=== PATIENT | male | born 1950 | race Two or more races ===

== ENCOUNTER 2025-01-05 21:25 | Inpatient (IN) | payer MEDICARE, OTHER ==
[~2025-01-05] VITALS: Ht 172.7 cm; Wt 79.4 kg
[2025-01-05 22:52] LABS: BASOPHILS # (AUTO) 0.1 K/uL (0.0-0.2); BASOPHILS % (AUTO) 1.4 % (0.0-2.0); EOSINOPHILS # (AUTO) 0.1 K/uL (0.0-0.7); EOSINOPHILS % (AUTO) 1.9 % (0.0-6.0); HEMATOCRIT 38 % (39-51); HEMOGLOBIN 12.8 g/dL (13.5-17.5); LYMPHOCYTES # (AUTO) 2.3 K/uL (0.8-4.8); LYMPHOCYTES % (AUTO) 29.7 % (20.0-44.0); MEAN CORPUSCULAR HEMOGLOBIN 32 PG (26.0-33.0); MEAN CORPUSCULAR HGB CONC 34 g/dl (31.0-36.0); MEAN CORPUSCULAR VOLUME 94 fL (80-96); MONOCYTES # (AUTO) 0.6 K/uL (0.1-1.30); MONOCYTES % (AUTO) 8.4 % (2.0-12.0); NEUTROPHILS # (AUTO) 4.5 K/uL (1.8-8.9); NEUTROPHILS % (AUTO) 58.6 % (43.0-81.0); PLATELET COUNT (AUTO) 312 K/uL (150-450); RED BLOOD CELL COUNT(AUTO) 3.99 MIL/uL (4.5-6.0); RED CELL DISTRIBUTION WIDTH 13.7 % (11.5-15.0); WHITE BLOOD COUNT (AUTO) 7.6 K/uL (4.3-11.0)
[2025-01-05 23:04] LABS: SERUM AMMONIA 14 umol/L (11-32)
[2025-01-05 23:05] LABS: CALCIUM, SERUM 9.2 mg/dL (8.5-10.1); CARBON DIOXIDE 23 mmol/L (21-32); CHLORIDE 103 mmol/L (98-107); CREATININE 0.9 mg/dL (0.6-1.3); GLUCOSE 103 mg/dL (74-106); POTASSIUM 3.9 mmol/L (3.5-5.1); SODIUM SERUM 137 mmol/L (136-145); UREA NITROGEN, BLOOD 14 mg/dL (7-18)
[2025-01-05 23:16] LABS: ALANINE AMINOTRANSFERASE < 6 U/L (12-78); ALBUMIN 3.7 g/dL (3.4-5.0); ALKALINE PHOSPHATASE 67 U/L (46-116); ASPARTATE AMINOTRANSFERASE 24 U/L (15-37); BILIRUBIN,TOTAL 0.4 mg/dL (0.2-1.0); SALICYLATE 3.1 mg/dL (2.8-20.0)
[2025-01-05 23:17] LABS: ACETAMINOPHEN <10 ug/ml (10-30)
[2025-01-06 00:37] LABS: APPEARANCE,URINE CLEAR (CLEAR); BILIRUBIN,URINE NEGATIVE (NEGATIVE); BLOOD, URINE NEGATIVE Ery/uL (NEGATIVE); COLOR,URINE YELLOW (YELLOW); KETONES,URINE NEGATIVE (NEGATIVE); LEUKOCYTE ESTERASE ,URINE NEGATIVE (NEGATIVE); NITRITE, URINE NEGATIVE (NEGATIVE); PH,URINE 7.5 (5.0-8.0); PROTEIN,URINE NEGATIVE (NEGATIVE); UGLUCOSE NEGATIVE (NEGATIVE); UROBILINOGEN,URINE 0.2 EU/dL (0.2)
[2025-01-06 00:45] LABS: AMPHETAMINE, URINE NEGATIVE (NEGATIVE); BARBITURATE, URINE NEGATIVE (NEGATIVE); BENZODIAZEPINE, URINE NEGATIVE (NEGATIVE); CANNABINOID, URINE NEGATIVE (NEGATIVE); COCCAINE, URINE NEGATIVE (NEGATIVE); OPIATE, URINE NEGATIVE (NEGATIVE); PHENCYCLIDINE SCREEN,URINE NEGATIVE (NEGATIVE)
[2025-01-06] MEDS ORDERED: HALO100A2 IM (04:59)
[2025-01-06] MEDS ORDERED: BISA10SU61 RC (04:59)
[2025-01-06] MEDS ORDERED: CARB1TAB24 PO (04:59)
[2025-01-06] MEDS ORDERED: DIPH25CA83 PO (04:59)
[2025-01-06] MEDS ORDERED: MAGN400O21 PO (04:59)
[2025-01-06] MEDS ORDERED: NA P133E RC (04:59)
[2025-01-06] MEDS ORDERED: ONDA8TAB13 PO (04:59)
[2025-01-06] MEDS ORDERED: ACET325T53 PO (04:59)
[2025-01-06] MEDS ORDERED: LORAZEPAM 0.5 MG TABLET PO PRN (07:00)
[2025-01-06 07:02] VITALS: BP 134/72; TEMP 97.5; O2SAT 99
[2025-01-06 08:00] VITALS: BP 133/69; TEMP 97.7; O2SAT 100
[2025-01-06] MEDS: BLOOD SUGAR DIAGNOSTIC 1 EACH STRIP IN ONE (08:20)
[2025-01-06] MEDS ORDERED: MAGN400O6 PO (09:27)
[2025-01-06] MEDS ORDERED: DIPH25TA27 PO (09:27)
[2025-01-06] MEDS ORDERED: BISACODYL SUPP (10 MG) 10 MG/SUPP.RECT SUPP.RECT RC PRN (11:00)
[2025-01-06] MEDS ORDERED: MAGNESIUM HYDROXIDE 30 ML UDC PO PRN (11:00)
[2025-01-06] MEDS: ACETAMINOPHEN 325 MG TABLET PO PRN (11:28)
[2025-01-06] MEDS: CARBIDOPA/LEVODOPA 25/250 MG 1 UDTAB PO SCH (14:23)
[2025-01-06] MEDS: MAGNESIUM HYDROXIDE 30 ML UDC PO PRN (15:40)
[2025-01-06] MEDS: MAG HYDROX/AL HYDROX/SIMETH 30 ML UDC PO PRN (15:40)
[2025-01-06 15:41] VITALS: BP 147/70; TEMP 97.3; O2SAT 100
[2025-01-06] MEDS: LORAZEPAM 1 MG TABLET PO PRN (15:41)
[2025-01-06 20:53] VITALS: BP 119/74; TEMP 98.3; O2SAT 100
[2025-01-07 07:49] LABS: CREATININE 0.8 mg/dL (0.6-1.3)
[2025-01-07 07:59] LABS: CHOLESTEROL 222 mg/dL (<200); HDL CHOLESTEROL 54 mg/dL (40-60); LDL 144 mg/dL (0-99); TRIGLYCERIDES 142 mg/dL (30-150)
[2025-01-07 08:00] VITALS: BP 133/60; TEMP 98; O2SAT 98
[2025-01-07 08:00] LABS: BILIRUBIN,TOTAL 0.5 mg/dL (0.2-1.0); CALCIUM, SERUM 9.7 mg/dL (8.5-10.1); CREATININE 0.8 mg/dL (0.6-1.3); POTASSIUM 3.6 mmol/L (3.5-5.1); TOTAL PROTEIN, SERUM 7.9 g/dL (6.4-8.2)
[2025-01-07] MEDS ORDERED: HALOPERIDOL 1 MG TABLET PO SCH (09:00)
[2025-01-07 16:00] VITALS: BP 136/70; TEMP 98; O2SAT 95
[2025-01-07] MEDS: HALOPERIDOL 1 MG TABLET PO SCH (18:00)
[2025-01-07 20:00] VITALS: BP 168/92; TEMP 98.6; O2SAT 97
[2025-01-07] MEDS: DIVALPROEX SODIUM 125 MG TABLET.DR PO SCH (21:05)
[2025-01-08 08:00] VITALS: BP 139/67; TEMP 97.9; O2SAT 100
[2025-01-08 16:00] VITALS: BP 100/70; TEMP 97.9; O2SAT 96
[2025-01-08 20:00] VITALS: BP 110/56; TEMP 97.9; O2SAT 100
[2025-01-09 08:00] VITALS: BP 98/67; TEMP 97.9; O2SAT 100
[2025-01-09 16:00] VITALS: BP 114/64; TEMP 98.1; O2SAT 97
[2025-01-09 20:00] VITALS: BP 128/60; TEMP 97.9; O2SAT 98
[2025-01-10] MEDS: TEMAZEPAM 7.5 MG CAPSULE PO PRN (01:18)
[2025-01-10 08:00] VITALS: BP 123/67; TEMP 98; O2SAT 97
[2025-01-10 16:00] VITALS: BP 108/66; TEMP 97.5; O2SAT 98
[2025-01-10 20:31] VITALS: BP 117/64; TEMP 98.2; O2SAT 97
[2025-01-11 08:21] VITALS: BP 130/65; TEMP 98.7; O2SAT 99
== END 2025-01-11 12:30 | DRG 885 ==
LOC: ER 21:27 → GPS 01-06 05:39
PROVIDERS: ADMIT Registered Nurse; ATTEND Nurse Practitioner Acute Care
DX: F25.9 Schizoaffective disorder, unspecified (principal); F29 Unspecified psychosis not due to a substance or known physiological condition; F31.9 Bipolar disorder, unspecified; Z79.899 Other long term (current) drug therapy; F41.1 Generalized anxiety disorder; Z88.5 Allergy status to narcotic agent; F39 Unspecified mood [affective] disorder; G20.A1 Parkinson's disease without dyskinesia, without mention of fluctuations; Z91.199 Patient's noncompliance with other medical treatment and regimen due to unspecified reason
CPT/HCPCS: 36415; 80053-TC; 80061-TC; 80164-TC; 82140-TC; 82565-TC; 82962-TC; 85025-TC; 87081-TC

== ENCOUNTER 2025-02-18 13:28 | Inpatient (IN) | payer MEDICARE, OTHER ==
[~2025-02-18] VITALS: Ht 167.6 cm; Wt 81.6 kg
[~2025-02-18 13:28] MED LIST: ACET325T53 PO; BISA10SU61 RC; CARB1TAB24 PO; DIPH25TA27 PO; HALO100A2 IM; MAGN400O6 PO; NA P133E RC; ONDA8TAB13 PO
[2025-02-18 15:43] LABS: PLATELET COUNT (AUTO) 388 K/uL (150-450); RED BLOOD CELL COUNT(AUTO) 4.13 MIL/uL (4.5-6.0); RED CELL DISTRIBUTION WIDTH 13.8 % (11.5-15.0); WHITE BLOOD COUNT (AUTO) 8.1 K/uL (4.3-11.0)
[2025-02-18 15:54] LABS: CALCIUM, SERUM 8.6 mg/dL (8.5-10.1); CREATININE 0.8 mg/dL (0.6-1.3); SODIUM SERUM 136 mmol/L (136-145); UREA NITROGEN, BLOOD 17 mg/dL (7-18)
[2025-02-18 16:01] LABS: ALCOHOL, BLOOD < 3 mg/dL (0-10); ASPARTATE AMINOTRANSFERASE 20 U/L (15-37); TOTAL PROTEIN, SERUM 7.1 g/dL (6.4-8.2)
[2025-02-18] MEDS ORDERED: MAGNESIUM HYDROXIDE 30 ML UDC PO PRN (17:00)
[2025-02-18] MEDS: LORAZEPAM 0.5 MG TABLET PO ONE (17:00)
[2025-02-18] MEDS: HALOPERIDOL 5 MG TABLET PO SCH (18:00)
[2025-02-18] MEDS: BLOOD SUGAR DIAGNOSTIC 1 EACH STRIP IN ONE (18:43)
[2025-02-18 20:00] VITALS: BP 125/61; TEMP 98.8; O2SAT 96
[2025-02-18] MEDS: TEMAZEPAM 7.5 MG CAPSULE PO ONE (22:32)
[2025-02-19] MEDS ORDERED: MAGNESIUM HYDROXIDE 30 ML UDC PO PRN (02:00)
[2025-02-19] MEDS ORDERED: ACETAMINOPHEN 325 MG TABLET PO PRN (02:00)
[2025-02-19] MEDS ORDERED: BISACODYL SUPP (10 MG) 10 MG/SUPP.RECT SUPP.RECT RC PRN (02:00)
[2025-02-19] MEDS ORDERED: NA PHOS,M-B/NA PHOS,DI-BA 1 EA ENEMA RC PRN (02:00)
[2025-02-19] MEDS: ACETAMINOPHEN 325 MG TABLET PO PRN (09:24)
[2025-02-19 16:02] VITALS: BP 147/70; TEMP 98.4; O2SAT 97
[2025-02-19] MEDS: LORAZEPAM INJ 2 MG/ML VIAL IM STA (16:24)
[2025-02-19] MEDS: HALOPERIDOL LACTATE INJ 5 MG/ML VIAL IM STA (16:24)
[2025-02-19 16:28] LABS: ASPARTATE AMINOTRANSFERASE 20.0 U/L (15-37); CALCIUM, SERUM 8.9 mg/dL (8.5-10.1); CREATININE 0.8 mg/dL (0.6-1.3); SODIUM SERUM 136.0 mmol/L (136-145); TOTAL PROTEIN, SERUM 7.6 g/dL (6.4-8.2); UREA NITROGEN, BLOOD 21.0 mg/dL (7-18)
[2025-02-19 16:31] LABS: LDL 121 mg/dL (0-99)
[2025-02-19 20:43] VITALS: BP 127/72; TEMP 98.2; O2SAT 97
[2025-02-20 08:00] VITALS: BP 154/64; TEMP 97.9; O2SAT 98
[2025-02-20 16:00] VITALS: BP 133/66; TEMP 98.1; O2SAT 100
[2025-02-20] MEDS: HALOPERIDOL 5 MG TABLET PO SCH (17:00)
[2025-02-20 20:57] VITALS: BP 137/54; TEMP 98.3; O2SAT 97
[2025-02-21 08:06] VITALS: BP 138/76; TEMP 97.9; O2SAT 100
[2025-02-21] MEDS: CARBIDOPA/LEVODOPA 25/250 MG 1 UDTAB PO SCH (08:51)
[2025-02-21 16:00] VITALS: BP 109/63; TEMP 97.8; O2SAT 100
[2025-02-21 20:27] VITALS: BP 148/74; TEMP 97.8; O2SAT 100
[2025-02-22] MEDS: TEMAZEPAM 15 MG CAPSULE PO PRN (01:36)
[2025-02-22] MEDS: LORAZEPAM 1 MG TABLET PO PRN (03:21)
[2025-02-22 16:00] VITALS: BP 110/55; TEMP 98.7; O2SAT 99
[2025-02-22 20:00] VITALS: BP 122/87; TEMP 98; O2SAT 97
[2025-02-22] MEDS: HALOPERIDOL 5 MG TABLET PO SCH (21:13)
[2025-02-23 08:00] VITALS: BP 113/53; TEMP 97.8; O2SAT 98
[2025-02-23 16:00] VITALS: BP 102/61; TEMP 98.1; O2SAT 99
[2025-02-23 20:28] VITALS: BP 119/65; TEMP 98.3; O2SAT 98
[2025-02-24 08:00] VITALS: BP 145/74; TEMP 98.7; O2SAT 98
[2025-02-24 16:00] VITALS: BP 153/70; TEMP 98.1; O2SAT 98
[2025-02-25 08:00] VITALS: BP 136/60; TEMP 98; O2SAT 96
[2025-02-25] MEDS: MAG HYDROX/AL HYDROX/SIMETH 30 ML UDC PO PRN (11:18)
[2025-02-25 16:00] VITALS: BP 132/65; TEMP 98; O2SAT 96
[2025-02-26 08:00] VITALS: BP 141/70; TEMP 98; O2SAT 96
[2025-02-26 16:00] VITALS: BP 125/79; TEMP 97.9; O2SAT 95
[2025-02-26] MEDS: HALOPERIDOL 5 MG TABLET PO SCH (17:00)
[2025-02-26 21:40] VITALS: BP 119/76; TEMP 98.1; O2SAT 98
[2025-02-27 08:00] VITALS: BP 150/65; TEMP 97.5; O2SAT 98
[2025-02-27 16:00] VITALS: BP 109/54; TEMP 98; O2SAT 97
[2025-02-27 20:23] VITALS: BP 126/66; TEMP 98.2; O2SAT 98
[2025-02-28 08:00] VITALS: BP 137/90; TEMP 97.7; O2SAT 96
[2025-02-28 16:10] VITALS: BP 126/64; TEMP 98.1; O2SAT 100
[2025-02-28 20:44] VITALS: BP 103/53; TEMP 98.1; O2SAT 97
[2025-03-01 08:00] VITALS: BP 126/69; TEMP 98.2; O2SAT 100
[2025-03-01 16:00] VITALS: BP 114/55; TEMP 98.4; O2SAT 100
[2025-03-01 19:50] VITALS: BP 112/54; TEMP 98.5; O2SAT 100
[2025-03-02 08:00] VITALS: BP 100/63; TEMP 98.7; O2SAT 100
== END 2025-03-02 13:00 | DRG 885 ==
LOC: ER 13:34 → GPS 15:19
PROVIDERS: ADMIT Registered Nurse; ATTEND Nurse Practitioner Acute Care
DX: F20.9 Schizophrenia, unspecified (principal); R45.851 Suicidal ideations; G20.A1 Parkinson's disease without dyskinesia, without mention of fluctuations; D64.9 Anemia, unspecified; Z88.5 Allergy status to narcotic agent; Z98.890 Other specified postprocedural states; Z79.899 Other long term (current) drug therapy; F29 Unspecified psychosis not due to a substance or known physiological condition; Z73.6 Limitation of activities due to disability; F31.9 Bipolar disorder, unspecified; F39 Unspecified mood [affective] disorder
CPT/HCPCS: 36415; 80048-TC; 80053-TC; 80061-TC; 80076-TC; 82962-TC; 84443-TC; 85025-TC; 97110-TC; 97112-TC; 97116-TC; 97530-TC; G0480; J1200; J1630; J2060; Q0163